=== PATIENT | male | born 1965 | race African-American/Black ===

== ENCOUNTER 2017-02-04 13:17 | Outpatient (CLI) | payer OTHER ==
--- NOTE | 2017-02-04 15:04 | RAD ---
THREE VIEWS OF THE LEFT INDEX FINGER: Comparison: 11-30-16 History: Index finger pain and swelling, cellulitis in this finger. FINDINGS: Three views of the left index finger shows diffuse soft tissue swelling. No obvious osseous erosions are seen. However, there is stable subtle osteopenia of the tuft of the distal phalanx. IMPRESSION: No obvious osseous erosions are seen to suggest osteomyelitis. POS: [facility]
== END 2017-02-04 13:18 | disposition home or self-care (01) ==
LOC: RAD 13:17
PROVIDERS: ATTEND Internal Medicine Infectious Disease
DX: L03.012 Cellulitis of left finger (principal)

== ENCOUNTER 2017-03-13 12:50 | Emergency (ER) | payer OTHER ==
[2017-03-13 16:15] LABS: #Eosinphils 0.1 thou/uL (0.0-0.7); #Lymphocytes 0.8 thou/uL (1.20-3.40); #Monocytes 0.2 thou/uL (0.11-0.59); #Neutrophils 1.7 thou/uL (1.40-6.50); %Basophils 1.2 % (0.0-1.0); %Eosinophils 1.8 % (0.0-10.0); %Lymphocytes 27.3 % (21.0-51.0); %Monocytes 8.1 % (0.0-10.0); Hematocrit 51.8 % (42.0-52.0); Red Blood Cell (RBC) Count 5.31 mill/uL (4.70-6.10); White Blood Cell (WBC) Count 2.8 thou/uL (4.8-10.8)
[2017-03-13 16:26] LABS: ALT (SGPT) 20 U/L (8-55); AST (SGOT) 13 U/L (5-34); Alkaline Phosphatase 108 U/L (40-150); Anion Gap 19 mmol/L (10-20); BUN (Urea Nitrogen) 9 mg/dL (8.9-20.6); Bilirubin, Total 0.8 mg/dL (0.2-1.2); Calc. Creatinine Clearance 0 mL/min (70-130); Calcium 9.3 mg/dL (7.8-10.44); Carbon Dioxide 20 mmol/L (22-29); Chloride 101 mmol/L (98-107); Estimated GFR-MDRD 89; Globulin 3.7 g/dL (2.4-3.5); Lipase 19 U/L (8-78); Protein, Total 7.9 g/dL (6.0-8.3)
== END 2017-03-13 17:28 | disposition home or self-care (01) ==
LOC: ERS 12:50
DX: R11.2 Nausea with vomiting, unspecified (principal); E10.9 Type 1 diabetes mellitus without complications; I10 Essential (primary) hypertension; E78.00 Pure hypercholesterolemia, unspecified; F31.9 Bipolar disorder, unspecified; F20.9 Schizophrenia, unspecified; F17.210 Nicotine dependence, cigarettes, uncomplicated; Z79.899 Other long term (current) drug therapy
CPT/HCPCS: 80053; 83690; 85025; 96360; 96361

== ENCOUNTER 2017-03-16 13:46 | Outpatient (CLI) | payer OTHER ==
[2017-03-16 15:00] LABS: Hematocrit 42.2 % (42.0-52.0); Mean Platelet Volume 6.7 fL (7.4-10.4); Red Blood Cell (RBC) Count 4.29 mill/uL (4.70-6.10); White Blood Cell (WBC) Count 4.5 thou/uL (4.8-10.8)
--- NOTE | 2017-03-25 21:41 | EKG ---
Test Reason : Blood Pressure : / mmHG Vent. Rate : 093 BPM Atrial Rate : 093 BPM P-R Int : 128 ms QRS Dur : 074 ms QT Int : 344 ms P-R-T Axes : 046 004 -11 degrees QTc Int : 427 ms Normal sinus rhythm Cannot rule out Anterior infarct , age undetermined Abnormal ECG No previous ECGs available Confirmed by ALISHA GARCIA (2) on 03/25/2017 9:41:24 PM Referred By: GEORGI Confirmed By:ALISHA GARCIA
== END 2017-03-16 13:47 | disposition home or self-care (01) ==
LOC: LABBT 13:46
PROVIDERS: ATTEND Orthopaedic Surgery Hand Surgery
DX: Z01.812 Encounter for preprocedural laboratory examination (principal); M86.8X4 Other osteomyelitis, hand
CPT/HCPCS: 85027; 93005; 93010

== ENCOUNTER 2017-03-30 15:46 | Emergency (ER) | payer OTHER, SELFPAY ==
[2017-03-30] MEDS ORDERED: Ibuprofen 200 MG TAB ONE (17:29)
[2017-03-30] MEDS ORDERED: Acetaminophen 500 MG TAB ONE (17:30)
== END 2017-03-30 18:14 | disposition home or self-care (01) ==
LOC: ERS 15:46
DX: L03.319 Cellulitis of trunk, unspecified (principal); E10.9 Type 1 diabetes mellitus without complications; E78.00 Pure hypercholesterolemia, unspecified; F31.9 Bipolar disorder, unspecified; F20.9 Schizophrenia, unspecified; F17.210 Nicotine dependence, cigarettes, uncomplicated; I10 Essential (primary) hypertension; Z79.84 Long term (current) use of oral hypoglycemic drugs; Z79.899 Other long term (current) drug therapy
CPT/HCPCS: 99283

== ENCOUNTER 2017-04-07 10:15 | Emergency (ER) | payer SELFPAY ==
[2017-04-07] MEDS ORDERED: Lidocaine 1% (PF) 30 ML VIAL ONE (10:42)
== END 2017-04-07 11:27 | disposition home or self-care (01) ==
LOC: ERS 10:15
DX: L02.414 Cutaneous abscess of left upper limb (principal); E10.9 Type 1 diabetes mellitus without complications; I10 Essential (primary) hypertension; F31.9 Bipolar disorder, unspecified; F20.9 Schizophrenia, unspecified; F17.210 Nicotine dependence, cigarettes, uncomplicated; Z79.84 Long term (current) use of oral hypoglycemic drugs; Z79.899 Other long term (current) drug therapy
CPT/HCPCS: 10060; J2001

== ENCOUNTER 2017-04-09 08:58 | Emergency (ER) | payer SELFPAY ==
[2017-04-09] MEDS ORDERED: Ibuprofen 800 MG TAB ONE (10:33)
== END 2017-04-09 10:54 | disposition home or self-care (01) ==
LOC: ERS 08:58
DX: L02.212 Cutaneous abscess of back [any part, except buttock and flank] (principal); E10.9 Type 1 diabetes mellitus without complications; I10 Essential (primary) hypertension; E78.00 Pure hypercholesterolemia, unspecified; G89.29 Other chronic pain; M54.9 Dorsalgia, unspecified; F41.9 Anxiety disorder, unspecified; F17.210 Nicotine dependence, cigarettes, uncomplicated; F31.9 Bipolar disorder, unspecified; F20.9 Schizophrenia, unspecified; Z71.6 Tobacco abuse counseling; Z79.899 Other long term (current) drug therapy
CPT/HCPCS: 87070; 87077; 87186; 87205; 99406

== ENCOUNTER 2017-04-12 15:51 | Emergency (ER) | payer SELFPAY | END 2017-04-12 19:03 | disposition home or self-care (01) | LOC: ERS 15:51 | DX: Z48.817 Encounter for surgical aftercare following surgery on the skin and subcutaneous tissue (principal); E10.9 Type 1 diabetes mellitus without complications; I10 Essential (primary) hypertension; F31.9 Bipolar disorder, unspecified; F20.9 Schizophrenia, unspecified; F17.210 Nicotine dependence, cigarettes, uncomplicated | CPT/HCPCS: 99282 ==

== ENCOUNTER 2022-11-06 09:23 | Inpatient (IN) | payer BC, OTHER ==
[2022-11-06 10:36] LABS: #Monocytes 0.9 thou/uL (0.11-0.59); #Neutrophils 14.5 thou/uL (1.40-6.50); %Basophils 0.3 % (0.0-1.0); %Lymphocytes 2.6 % (21.0-51.0); %Monocytes 5.6 % (0.0-10.0); %Neutrophils 91.1 % (42.0-75.0); Hemoglobin 15.4 g/dL (14.0-18.0); Mean Corpuscular HGB CONC 34.5 g/dL (32.0-36.0); Mean Corpuscular Hemoglobin 32.7 pg (27.0-31.0); Mean Corpuscular Volume 94.9 fl (78.0-98.0); Mean Platelet Volume 9.6 fL (7.4-10.4); Platelet Count 239 10x3/uL (130-400); RBC Distribution Width 12.2 % (11.5-14.5); Red Blood Cell (RBC) Count 4.71 mill/uL (4.70-6.10)
[2022-11-06 11:17] LABS: Albumin 4.1 g/dL (3.5-5.0)
[2022-11-06 11:18] LABS: Chloride 98 mmol/L (98-107); Potassium 4.9 mmol/L (3.5-5.1); Sodium 136 mmol/L (136-145)
[2022-11-06 11:19] LABS: Calcium 9.9 mg/dL (7.8-10.44); Glucose 254 mg/dL (70-105)
[2022-11-06 11:20] LABS: Globulin 4.8 g/dL (2.4-3.5); Protein, Total 8.9 g/dL (6.0-8.3)
[2022-11-06 11:21] LABS: Bilirubin, Total 1.7 mg/dL (0.2-1.2); Carbon Dioxide 18 mmol/L (22-29)
[2022-11-06 11:22] LABS: Alkaline Phosphatase 97 U/L (40-110)
[2022-11-06 11:23] LABS: BUN (Urea Nitrogen) 10 mg/dL (8.4-25.7); Calc. Creatinine Clearance 0 mL/min (70-130); Estimated GFR 91
[2022-11-06 11:24] LABS: AST (SGOT) 40 U/L (5-34)
[2022-11-06 11:25] LABS: ALT (SGPT) 13 U/L (8-55); Lipase 12 U/L (8-78)
[2022-11-06 11:44] LABS: Anion Gap 25 mmol/L (10-20)
[2022-11-06 12:25] LABS: Bacteria/HPF 3+ HPF (None Seen); Bilirubin Negative (Negative); Blood, Urine Negative (Negative); CAUTI Indications for Culture Fever or rigors; Clarity Clear (Clear); Glucose, Urine (Dipstick) Greater than 1000 mg/dL (Negative); Ketone, Urine 60 mg/dL (Negative); Leukocyte 75 Leu/uL (Negative); Nitrite Negative (Negative); Protein, Urine (Dipstick) 30 mg/dL (Neg-Trace); RBC/HPF 0-3 HPF (0-3); Squamous Epithelial None Seen HPF (0-3); Urobilinogen Normal mg/dL (Less than 2); pH, Urine 5.5 (5.0-9.0)
[2022-11-06 12:27] LABS: Specific Gravity, Urine Greater than 1.060 (1.002-1.036)
[2022-11-06 12:28] LABS: Urine Culture Reflex Yes Yes
[2022-11-06] MEDS ORDERED: cefTRIAXone (ROCEPHIN) 2 GM VIAL ONE (13:12)
[2022-11-06] MEDS ORDERED: Iopamidol-370 76% 500 ML MDV (1 ML CHARGE) ONE (13:20)
[2022-11-06] MEDS ORDERED: Senokot S 8.6-50 MG TAB PO PRN (14:36)
[2022-11-06] MEDS ORDERED: Acetaminophen 650 MG Suppository PR PRN (14:36)
[2022-11-06] MEDS ORDERED: Dextrose 5% in Water 1,000 ML IV PRN (14:36)
[2022-11-06] MEDS ORDERED: Acetaminophen 325 MG TAB PO PRN (14:36)
[2022-11-06] MEDS ORDERED: Glucagon 1 MG/ML KIT IM PRN (14:36)
[2022-11-06] MEDS ORDERED: Dextrose 50% Abboject 50 ML SYRINGE SLOW IVP PRN (14:36)
[2022-11-06] MEDS ORDERED: Ondansetron ODT 4 MG TAB PO PRN (14:36)
[2022-11-06] MEDS ORDERED: Ondansetron PF 4 MG/2 ML Vial IVP PRN (14:36)
[2022-11-06] MEDS ORDERED: Guaifenesin DM 100-10/5 ML UDCUP PO PRN (14:36)
[2022-11-06] MEDS ORDERED: HumaLOG 300 UNITS/3 ML VIAL SC PRN ×2 (14:36)
[2022-11-06 15:37] LABS: Troponin I Less than 0.010 ng/mL (< 0.028)
[2022-11-06 17:10] VITALS: BMI 32.5
[2022-11-06 17:15] LABS: Troponin I Less than 0.010 ng/mL (< 0.028)
[2022-11-06] MEDS ORDERED: traMADol HCl 50 MG TAB PO PRN ×2 (18:21)
[2022-11-06] MEDS: Famotidine 20 MG TAB PO SCH (22:17)
[2022-11-07 02:26] LABS: Chlam.trachomatis by PCR,Urine Not Detected (NotDetected); GC N.gonorrhoeae PCR,UrineVOID Not Detected (NotDetected)
[2022-11-07 06:00] LABS: #Monocytes 0.9 thou/uL (0.11-0.59); #Neutrophils 8.8 thou/uL (1.40-6.50); %Basophils 0.3 % (0.0-1.0); %Eosinophils 0.2 % (0.0-10.0); %Lymphocytes 7.7 % (21.0-51.0); %Monocytes 8.3 % (0.0-10.0); Hemoglobin 13.8 g/dL (14.0-18.0); Mean Corpuscular HGB CONC 33.8 g/dL (32.0-36.0); Mean Corpuscular Hemoglobin 32.1 pg (27.0-31.0); Mean Corpuscular Volume 94.9 fl (78.0-98.0); Mean Platelet Volume 9.3 fL (7.4-10.4); Platelet Count 232 10x3/uL (130-400); RBC Distribution Width 12.3 % (11.5-14.5); White Blood Cell (WBC) Count 10.6 10x3/uL (4.8-10.8)
[2022-11-07 06:31] LABS: Anion Gap 15 mmol/L (10-20); BUN (Urea Nitrogen) 9 mg/dL (8.4-25.7); Calc. Creatinine Clearance 138 mL/min (70-130); Calcium 9.4 mg/dL (7.8-10.44); Carbon Dioxide 23 mmol/L (22-29); Chloride 99 mmol/L (98-107); Estimated GFR 105; Glucose 245 mg/dL (70-105); Potassium 3.3 mmol/L (3.5-5.1); Sodium 134 mmol/L (136-145)
[2022-11-07] MEDS ORDERED: Electrolyte Replacement Protocol 1 EACH FS SCH (08:15)
[2022-11-07] MEDS ORDERED: Potassium Chloride 20 MEQ TAB PO SCH (08:30)
[2022-11-07 08:41] LABS: ALT (SGPT) 9 U/L (8-55); AST (SGOT) 8 U/L (5-34); Albumin 3.6 g/dL (3.5-5.0); Alkaline Phosphatase 81 U/L (40-110); Bilirubin, Direct 0.3 mg/dL (0.1-0.3); Bilirubin, Total 0.8 mg/dL (0.2-1.2); Magnesium 1.8 mg/dL (1.6-2.6); Phosphorus 2.2 mg/dL (2.3-4.7); Protein, Total 7.2 g/dL (6.0-8.3)
[2022-11-07] MEDS: NS 0.9% w/ 20 MEQ KCL 1,000 ML/1,000 ML BAG IV SCH ×2 (09:39→16:54)
[2022-11-07] MEDS: Famotidine 20 MG TAB PO SCH ×2 (09:40→20:37)
[2022-11-07] MEDS ORDERED: Magnesium 2 GM/50 ML(in water) 2 GM in Premix Bag 1 BAG IVPB SCH (10:45)
[2022-11-07] MEDS ORDERED: Iopamidol-370 76% 500 ML MDV (1 ML CHARGE) ONE (12:15)
[2022-11-07] MEDS ORDERED: cefTRIAXone\\ROCEPHIN 2 GM in Sodium Chloride 0.9% 100 ML IVPB SCH (13:00)
[2022-11-08] MEDS: NS 0.9% w/ 20 MEQ KCL 1,000 ML/1,000 ML BAG IV SCH (01:52)
[2022-11-08 04:47] LABS: %Lymphocytes 9.8 % (21.0-51.0); %Monocytes 8.7 % (0.0-10.0); %Neutrophils 79.7 % (42.0-75.0); Hemoglobin 12.6 g/dL (14.0-18.0); Mean Corpuscular HGB CONC 33.4 g/dL (32.0-36.0); Mean Corpuscular Hemoglobin 32.7 pg (27.0-31.0); Mean Platelet Volume 9.4 fL (7.4-10.4); Platelet Count 218 10x3/uL (130-400); RBC Distribution Width 12.3 % (11.5-14.5); Red Blood Cell (RBC) Count 3.85 mill/uL (4.70-6.10); White Blood Cell (WBC) Count 8.2 10x3/uL (4.8-10.8)
[2022-11-08 04:48] LABS: #Monocytes 0.7 thou/uL (0.11-0.59); #Neutrophils 6.5 thou/uL (1.40-6.50); %Basophils 0.5 % (0.0-1.0); %Eosinophils 0.4 % (0.0-10.0)
[2022-11-08 04:51] LABS: Mean Corpuscular Volume 97.9 fl (78.0-98.0)
[2022-11-08 05:10] LABS: Hemoglobin A1c 7.8 % (4.0-6.0)
[2022-11-08 05:27] LABS: Chloride 107 mmol/L (98-107); Sodium 135 mmol/L (136-145)
[2022-11-08 05:28] LABS: Calcium 8.5 mg/dL (7.8-10.44)
[2022-11-08 05:29] LABS: Globulin 3.6 g/dL (2.4-3.5); Glucose 235 mg/dL (70-105); Protein, Total 6.6 g/dL (6.0-8.3)
[2022-11-08 05:30] LABS: Anion Gap 18 mmol/L (10-20); Carbon Dioxide 14 mmol/L (22-29)
[2022-11-08 05:31] LABS: Bilirubin, Total 0.5 mg/dL (0.2-1.2)
[2022-11-08 05:32] LABS: Alkaline Phosphatase 808 U/L (40-110); CRP (Inflammatory) 10.65 mg/dL (= or < 0.5); Calc. Creatinine Clearance 142 mL/min (70-130); Estimated GFR 106
[2022-11-08 05:33] LABS: BUN (Urea Nitrogen) 6 mg/dL (8.4-25.7)
[2022-11-08 05:34] LABS: AST (SGOT) 18 U/L (5-34)
[2022-11-08 05:35] LABS: ALT (SGPT) 9 U/L (8-55)
[2022-11-08] MEDS ORDERED: glipiZIDE 10 MG TAB PO SCH (07:30)
[2022-11-08 08:31] VITALS: BP 144/61; TEMP 97.5
[2022-11-08] MEDS ORDERED: PHOS-NAK 1 PKT PACK PO SCH (09:00)
[2022-11-08] MEDS: Famotidine 20 MG TAB PO SCH (09:05)
[2022-11-08] MEDS ORDERED: Saccharomyces boulardii 250 MG CAP PO SCH (14:00)
== END 2022-11-08 10:16 | disposition home or self-care (01) | DRG 871 ==
LOC: ERS 09:23 → ERHOLD 13:47 → 2SW 16:52
PROVIDERS: ADMIT Emergency Medicine; ATTEND Internal Medicine
DX: A41.9 Sepsis, unspecified organism (principal); I26.99 Other pulmonary embolism without acute cor pulmonale; N39.0 Urinary tract infection, site not specified; E87.20 Acidosis, unspecified; E11.9 Type 2 diabetes mellitus without complications; N49.0 Inflammatory disorders of seminal vesicle; I10 Essential (primary) hypertension; E78.00 Pure hypercholesterolemia, unspecified; F17.210 Nicotine dependence, cigarettes, uncomplicated; F41.9 Anxiety disorder, unspecified; F31.9 Bipolar disorder, unspecified; F20.9 Schizophrenia, unspecified; E87.6 Hypokalemia; E83.39 Other disorders of phosphorus metabolism; E83.42 Hypomagnesemia; Z96.652 Presence of left artificial knee joint; E78.5 Hyperlipidemia, unspecified; Z79.84 Long term (current) use of oral hypoglycemic drugs; Z98.890 Other specified postprocedural states
CPT/HCPCS: 36415; 36416; 51701; 71275; 74177; 80048; 80053; 81001; 83036; 83690; 83735; 84100; 84484; 85025; 86140; 87086; 87491; 87591; 93005; 93306; 96365; 96372; J0696; J1650; J1815; J3475; J3480; J3490; Q9967

== ENCOUNTER 2022-11-20 12:29 | Inpatient (IN) | payer BC, OTHER ==
[~2022-11-20 12:29] MED LIST: Iopamidol-370 76% 500 ML MDV (1 ML CHARGE) ONE
[2022-11-20 15:26] LABS: #Monocytes 0.5 thou/uL (0.11-0.59); #Neutrophils 6.2 thou/uL (1.40-6.50); %Basophils 0.5 % (0.0-1.0); %Eosinophils 0.3 % (0.0-10.0); %Lymphocytes 15.8 % (21.0-51.0); %Monocytes 6.1 % (0.0-10.0); Hemoglobin 14.5 g/dL (14.0-18.0); Mean Corpuscular HGB CONC 33.5 g/dL (32.0-36.0); Mean Corpuscular Hemoglobin 32.4 pg (27.0-31.0); Mean Corpuscular Volume 96.9 fl (78.0-98.0); Mean Platelet Volume 8.7 fL (7.4-10.4); Platelet Count 353 10x3/uL (130-400); RBC Distribution Width 12.7 % (11.5-14.5); Red Blood Cell (RBC) Count 4.47 mill/uL (4.70-6.10)
[2022-11-20 15:51] LABS: ALT (SGPT) 9 U/L (8-55); AST (SGOT) 9 U/L (5-34); Albumin 4.2 g/dL (3.5-5.0); Alkaline Phosphatase 80 U/L (40-110); Anion Gap 15 mmol/L (10-20); BUN (Urea Nitrogen) 5 mg/dL (8.4-25.7); Bilirubin, Total 0.6 mg/dL (0.2-1.2); Calc. Creatinine Clearance 0 mL/min (70-130); Calcium 9.5 mg/dL (7.8-10.44); Carbon Dioxide 25 mmol/L (22-29); Chloride 104 mmol/L (98-107); Estimated GFR 105; Globulin 3.5 g/dL (2.4-3.5); Glucose 192 mg/dL (70-105); Potassium 4.2 mmol/L (3.5-5.1); Protein, Total 7.7 g/dL (6.0-8.3); Sodium 140 mmol/L (136-145)
[2022-11-20 17:12] LABS: Bacteria/HPF None Seen HPF (None Seen); Bilirubin Negative (Negative); Blood, Urine Negative (Negative); CAUTI Indications for Culture Dysuria,urgency,freq; Clarity Clear (Clear); Glucose, Urine (Dipstick) 150 mg/dL (Negative); Ketone, Urine Negative (Negative); Leukocyte Negative Leu/uL (Negative); Nitrite Negative (Negative); Protein, Urine (Dipstick) 30 mg/dL (Neg-Trace); RBC/HPF 0-3 HPF (0-3); Squamous Epithelial 0-3 HPF (0-3); Urobilinogen Normal mg/dL (Less than 2); WBC/HPF 0-3 HPF (0-3); pH, Urine 5.5 (5.0-9.0)
[2022-11-20 17:20] LABS: Urine Culture Reflex No No
[2022-11-20] MEDS ORDERED: Ketorolac Tromethamine 30 MG/ML VIAL ONE (17:50)
[2022-11-20] MEDS ORDERED: Piperacillin/Tazobactam 3.375 GM VIAL ONE (18:35)
[2022-11-20] MEDS ORDERED: Ondansetron ODT 4 MG TAB PO PRN (21:03)
[2022-11-20] MEDS ORDERED: Senokot S 8.6-50 MG TAB PO PRN (21:03)
[2022-11-20] MEDS ORDERED: Acetaminophen 325 MG TAB PO PRN (21:03)
[2022-11-20] MEDS ORDERED: Dextrose 5% in Water 1,000 ML IV PRN (21:06)
[2022-11-20] MEDS ORDERED: Dextrose 50% Abboject 50 ML SYRINGE SLOW IVP PRN (21:06)
[2022-11-20] MEDS ORDERED: Glucagon 1 MG/ML KIT IM PRN (21:06)
[2022-11-20] MEDS ORDERED: D5 1/2 NS w/20 mEq KCL 1,000 ML IV SCH (23:55)
[2022-11-21] MEDS: Piperacillin/Tazobactam 3.375 GM in Sodium Chloride 0.9% 100 ML IVPB SCH ×4 (00:04→20:32)
[2022-11-21] MEDS: HYDROcodone/Acetaminophen 5/325 mg Tablet PO PRN ×4 (00:07→20:31)
[2022-11-21 01:53] VITALS: BMI 33.2
[2022-11-21 06:58] LABS: #Eosinphils 0.1 thou/uL (0.0-0.7); #Monocytes 0.4 thou/uL (0.11-0.59); #Neutrophils 4.6 thou/uL (1.40-6.50); %Basophils 0.5 % (0.0-1.0); %Eosinophils 1.1 % (0.0-10.0); %Lymphocytes 16.4 % (21.0-51.0); %Neutrophils 74.7 % (42.0-75.0); Hemoglobin 12.9 g/dL (14.0-18.0); Mean Corpuscular HGB CONC 33.8 g/dL (32.0-36.0); Mean Corpuscular Hemoglobin 32.6 pg (27.0-31.0); Mean Corpuscular Volume 96.5 fl (78.0-98.0); Mean Platelet Volume 8.7 fL (7.4-10.4); Platelet Count 296 10x3/uL (130-400); RBC Distribution Width 12.7 % (11.5-14.5); Red Blood Cell (RBC) Count 3.96 mill/uL (4.70-6.10); White Blood Cell (WBC) Count 6.1 10x3/uL (4.8-10.8)
[2022-11-21 07:26] LABS: Anion Gap 11 mmol/L (10-20); BUN (Urea Nitrogen) 7 mg/dL (8.4-25.7); Calc. Creatinine Clearance 151 mL/min (70-130); Calcium 9.2 mg/dL (7.8-10.44); Carbon Dioxide 28 mmol/L (22-29); Chloride 103 mmol/L (98-107); Estimated GFR 105; Glucose 242 mg/dL (70-105); Potassium 3.5 mmol/L (3.5-5.1); Sodium 138 mmol/L (136-145)
[2022-11-21] MEDS: Famotidine 20 MG TAB PO SCH ×2 (08:01→20:32)
[2022-11-21] MEDS: HumaLOG 300 UNITS/3 ML VIAL SC PRN ×2 (13:27→20:36)
[2022-11-22] MEDS: HYDROcodone/Acetaminophen 5/325 mg Tablet PO PRN ×2 (06:25→21:29)
[2022-11-22] MEDS: Piperacillin/Tazobactam 3.375 GM in Sodium Chloride 0.9% 100 ML IVPB SCH ×3 (06:25→21:30)
[2022-11-22] MEDS: HumaLOG 300 UNITS/3 ML VIAL SC PRN ×3 (06:27→18:16)
[2022-11-22 06:52] LABS: #Eosinphils 0.1 thou/uL (0.0-0.7); #Monocytes 0.4 thou/uL (0.11-0.59); #Neutrophils 5.8 thou/uL (1.40-6.50); %Basophils 0.4 % (0.0-1.0); %Eosinophils 0.8 % (0.0-10.0); %Lymphocytes 11.6 % (21.0-51.0); %Monocytes 5.6 % (0.0-10.0); %Neutrophils 81.2 % (42.0-75.0); Hemoglobin 13.2 g/dL (14.0-18.0); Mean Corpuscular HGB CONC 33.2 g/dL (32.0-36.0); Mean Corpuscular Hemoglobin 31.8 pg (27.0-31.0); Mean Corpuscular Volume 95.9 fl (78.0-98.0); Mean Platelet Volume 8.8 fL (7.4-10.4); Platelet Count 279 10x3/uL (130-400); RBC Distribution Width 12.4 % (11.5-14.5); Red Blood Cell (RBC) Count 4.15 mill/uL (4.70-6.10); White Blood Cell (WBC) Count 7.2 10x3/uL (4.8-10.8)
[2022-11-22 07:17] LABS: Anion Gap 15 mmol/L (10-20); BUN (Urea Nitrogen) 7 mg/dL (8.4-25.7); CRP (Inflammatory) 3.87 mg/dL (= or < 0.5); Calc. Creatinine Clearance 149 mL/min (70-130); Calcium 9.1 mg/dL (7.8-10.44); Carbon Dioxide 23 mmol/L (22-29); Chloride 103 mmol/L (98-107); Estimated GFR 104; Glucose 244 mg/dL (70-105); Potassium 3.9 mmol/L (3.5-5.1); Sodium 137 mmol/L (136-145)
[2022-11-22] MEDS: Famotidine 20 MG TAB PO SCH ×2 (08:50→21:28)
[2022-11-22] MEDS: Ketorolac Tromethamine 30 MG/ML VIAL IVP PRN ×2 (08:50→18:22)
[2022-11-22] MEDS: glipiZIDE 10 MG TAB PO SCH (17:58)
[2022-11-22] MEDS: metFORMIN 500 MG TAB PO SCH (17:59)
[2022-11-23] MEDS: Ketorolac Tromethamine 30 MG/ML VIAL IVP PRN (01:50)
[2022-11-23] MEDS: Piperacillin/Tazobactam 3.375 GM in Sodium Chloride 0.9% 100 ML IVPB SCH ×3 (05:20→21:06)
[2022-11-23 08:17] LABS: #Eosinphils 0.1 thou/uL (0.0-0.7); #Monocytes 0.4 thou/uL (0.11-0.59); #Neutrophils 4.5 thou/uL (1.40-6.50); %Basophils 0.5 % (0.0-1.0); %Eosinophils 1.5 % (0.0-10.0); %Lymphocytes 15.8 % (21.0-51.0); %Neutrophils 75.9 % (42.0-75.0); Hemoglobin 12.5 g/dL (14.0-18.0); Mean Corpuscular HGB CONC 34.1 g/dL (32.0-36.0); Mean Corpuscular Hemoglobin 32.7 pg (27.0-31.0); Mean Corpuscular Volume 96.1 fl (78.0-98.0); Mean Platelet Volume 9.1 fL (7.4-10.4); Platelet Count 308 10x3/uL (130-400); RBC Distribution Width 12.3 % (11.5-14.5); Red Blood Cell (RBC) Count 3.82 mill/uL (4.70-6.10); White Blood Cell (WBC) Count 5.9 10x3/uL (4.8-10.8)
[2022-11-23 08:49] LABS: Anion Gap 15 mmol/L (10-20); BUN (Urea Nitrogen) 8 mg/dL (8.4-25.7); Calc. Creatinine Clearance 163 mL/min (70-130); Carbon Dioxide 23 mmol/L (22-29); Chloride 105 mmol/L (98-107); Estimated GFR 107; Glucose 162 mg/dL (70-105); Potassium 3.5 mmol/L (3.5-5.1); Sodium 139 mmol/L (136-145)
[2022-11-23] MEDS: Lisinopril 20 MG TAB PO SCH (09:07)
[2022-11-23] MEDS: metFORMIN 500 MG TAB PO SCH ×2 (09:07→16:45)
[2022-11-23] MEDS: glipiZIDE 10 MG TAB PO SCH ×2 (09:07→16:45)
[2022-11-23] MEDS: Famotidine 20 MG TAB PO SCH ×2 (09:08→20:05)
[2022-11-23] MEDS: LevoFLOXacin 750 mg/D5W 750 MG in Premix Bag 1 BAG IVPB SCH (13:18)
[2022-11-23] MEDS: HYDROcodone/Acetaminophen 5/325 mg Tablet PO PRN ×2 (13:27→20:06)
[2022-11-24] MEDS: HYDROcodone/Acetaminophen 5/325 mg Tablet PO PRN ×3 (00:24→21:10)
[2022-11-24] MEDS: Piperacillin/Tazobactam 3.375 GM in Sodium Chloride 0.9% 100 ML IVPB SCH ×3 (05:24→21:04)
[2022-11-24 07:27] LABS: #Eosinphils 0.1 thou/uL (0.0-0.7); #Monocytes 0.6 thou/uL (0.11-0.59); #Neutrophils 4.8 thou/uL (1.40-6.50); %Basophils 0.2 % (0.0-1.0); %Lymphocytes 12.4 % (21.0-51.0); %Neutrophils 77.2 % (42.0-75.0); Mean Corpuscular HGB CONC 34.4 g/dL (32.0-36.0); Mean Corpuscular Hemoglobin 32.8 pg (27.0-31.0); Mean Corpuscular Volume 95.5 fl (78.0-98.0); Mean Platelet Volume 8.9 fL (7.4-10.4); Platelet Count 274 10x3/uL (130-400); RBC Distribution Width 12.1 % (11.5-14.5); Red Blood Cell (RBC) Count 3.96 mill/uL (4.70-6.10); White Blood Cell (WBC) Count 6.1 10x3/uL (4.8-10.8)
[2022-11-24 07:51] LABS: INR-International Normal Ratio 1.1; Prothrombin Time 14.7 sec (12.0-14.7)
[2022-11-24 07:55] LABS: Anion Gap 13 mmol/L (10-20); BUN (Urea Nitrogen) 6 mg/dL (8.4-25.7); CRP (Inflammatory) 3.36 mg/dL (= or < 0.5); Calc. Creatinine Clearance 170 mL/min (70-130); Calcium 9.1 mg/dL (7.8-10.44); Carbon Dioxide 24 mmol/L (22-29); Chloride 106 mmol/L (98-107); Estimated GFR 108; Glucose 104 mg/dL (70-105); Potassium 3.5 mmol/L (3.5-5.1); Sodium 139 mmol/L (136-145)
[2022-11-24] MEDS: Ketorolac Tromethamine 30 MG/ML VIAL IVP PRN (08:34)
[2022-11-24] MEDS: Famotidine 20 MG TAB PO SCH ×2 (08:35→20:16)
[2022-11-24] MEDS: Lisinopril 20 MG TAB PO SCH (08:35)
[2022-11-24] MEDS: metFORMIN 500 MG TAB PO SCH ×2 (08:35→16:00)
[2022-11-24] MEDS: glipiZIDE 10 MG TAB PO SCH ×2 (08:35→15:45)
[2022-11-24] MEDS: LevoFLOXacin 750 mg/D5W 750 MG in Premix Bag 1 BAG IVPB SCH (12:28)
[2022-11-25] MEDS: Piperacillin/Tazobactam 3.375 GM in Sodium Chloride 0.9% 100 ML IVPB SCH ×4 (05:08→21:11)
[2022-11-25] MEDS: HYDROcodone/Acetaminophen 5/325 mg Tablet PO PRN ×3 (05:09→20:56)
[2022-11-25] MEDS: glipiZIDE 10 MG TAB PO SCH ×3 (08:04→17:25)
[2022-11-25] MEDS: metFORMIN 500 MG TAB PO SCH ×3 (08:04→17:25)
[2022-11-25] MEDS: Famotidine 20 MG TAB PO SCH ×2 (08:05→20:56)
[2022-11-25] MEDS: Lisinopril 20 MG TAB PO SCH (08:05)
[2022-11-25] MEDS: LevoFLOXacin 750 mg/D5W 750 MG in Premix Bag 1 BAG IVPB SCH (12:16)
[2022-11-25] MEDS: Ketorolac Tromethamine 30 MG/ML VIAL IVP PRN (14:04)
[2022-11-25] MEDS ORDERED: Bupivacaine 0.25% HCL 30 ML VIAL ONE (14:41)
[2022-11-25] MEDS ORDERED: Lidocaine 1% PF 5 ML VIAL ONE ×2 (14:41→15:42)
[2022-11-25] MEDS ORDERED: Bacitracin Zinc Ointment 30 gm TUBE ONE (14:41)
[2022-11-25] MEDS ORDERED: fentaNYL 50 mcg/mL 1 mL Vial ONE (14:59)
[2022-11-25] MEDS ORDERED: Dexamethasone 20 MG/5 ML VIAL ONE (15:42)
[2022-11-25] MEDS ORDERED: PROPOFOL 200 MG/20 ML VIAL ONE (15:42)
[2022-11-25] MEDS ORDERED: Rocuronium Bromide 10 MG/ML (10ML VIAL) ONE (15:42)
[2022-11-25] MEDS ORDERED: Ondansetron PF 4 MG/2 ML Vial ONE (15:42)
[2022-11-25] MEDS: HumaLOG 300 UNITS/3 ML VIAL SC PRN (22:49)
[2022-11-26] MEDS: HYDROcodone/Acetaminophen 5/325 mg Tablet PO PRN ×5 (00:43→21:54)
[2022-11-26] MEDS: Piperacillin/Tazobactam 3.375 GM in Sodium Chloride 0.9% 100 ML IVPB SCH ×3 (05:44→20:21)
[2022-11-26] MEDS: HumaLOG 300 UNITS/3 ML VIAL SC PRN (05:46)
[2022-11-26] MEDS: Famotidine 20 MG TAB PO SCH ×2 (08:34→20:21)
[2022-11-26] MEDS: glipiZIDE 10 MG TAB PO SCH ×2 (08:34→18:08)
[2022-11-26] MEDS: Lisinopril 20 MG TAB PO SCH (08:34)
[2022-11-26] MEDS: metFORMIN 500 MG TAB PO SCH ×2 (08:35→18:08)
[2022-11-26] MEDS: LevoFLOXacin 750 mg/D5W 750 MG in Premix Bag 1 BAG IVPB SCH (13:11)
[2022-11-27 05:24] LABS: #Eosinphils 0.1 thou/uL (0.0-0.7); #Monocytes 0.5 thou/uL (0.11-0.59); #Neutrophils 3.5 thou/uL (1.40-6.50); %Basophils 0.7 % (0.0-1.0); %Eosinophils 1.3 % (0.0-10.0); %Monocytes 8.1 % (0.0-10.0); %Neutrophils 58.4 % (42.0-75.0); Hemoglobin 12.6 g/dL (14.0-18.0); Mean Corpuscular HGB CONC 32.7 g/dL (32.0-36.0); Mean Corpuscular Hemoglobin 32.6 pg (27.0-31.0); Mean Corpuscular Volume 99.5 fl (78.0-98.0); Mean Platelet Volume 8.8 fL (7.4-10.4); Platelet Count 285 10x3/uL (130-400); RBC Distribution Width 12.3 % (11.5-14.5); Red Blood Cell (RBC) Count 3.87 mill/uL (4.70-6.10)
[2022-11-27] MEDS: Piperacillin/Tazobactam 3.375 GM in Sodium Chloride 0.9% 100 ML IVPB SCH ×3 (05:46→21:19)
[2022-11-27 05:48] LABS: Anion Gap 13 mmol/L (10-20); BUN (Urea Nitrogen) 10 mg/dL (8.4-25.7); CRP (Inflammatory) 4.23 mg/dL (= or < 0.5); Calc. Creatinine Clearance 151 mL/min (70-130); Calcium 9.1 mg/dL (7.8-10.44); Carbon Dioxide 23 mmol/L (22-29); Chloride 106 mmol/L (98-107); Estimated GFR 105; Glucose 97 mg/dL (70-105); Magnesium 1.6 mg/dL (1.6-2.6); Potassium 3.7 mmol/L (3.5-5.1); Sodium 138 mmol/L (136-145)
[2022-11-27] MEDS: HYDROcodone/Acetaminophen 5/325 mg Tablet PO PRN ×3 (08:30→21:11)
[2022-11-27] MEDS: glipiZIDE 10 MG TAB PO SCH ×2 (08:30→16:56)
[2022-11-27] MEDS: Famotidine 20 MG TAB PO SCH ×2 (08:30→21:12)
[2022-11-27] MEDS: metFORMIN 500 MG TAB PO SCH ×2 (08:31→16:59)
[2022-11-27] MEDS: Lisinopril 20 MG TAB PO SCH (08:31)
[2022-11-27] MEDS: HumaLOG 300 UNITS/3 ML VIAL SC PRN (12:15)
[2022-11-27] MEDS: LevoFLOXacin 750 mg/D5W 750 MG in Premix Bag 1 BAG IVPB SCH (12:51)
[2022-11-27] MEDS: Apixaban 5 MG TAB PO SCH (21:12)
[2022-11-28] MEDS: HYDROcodone/Acetaminophen 5/325 mg Tablet PO PRN (05:11)
[2022-11-28] MEDS: Piperacillin/Tazobactam 3.375 GM in Sodium Chloride 0.9% 100 ML IVPB SCH ×2 (05:11→12:51)
[2022-11-28 07:32] VITALS: BP 154/91; TEMP 98.1
[2022-11-28] MEDS: Famotidine 20 MG TAB PO SCH (08:29)
[2022-11-28] MEDS: glipiZIDE 10 MG TAB PO SCH (08:29)
[2022-11-28] MEDS: Lisinopril 20 MG TAB PO SCH (08:29)
[2022-11-28] MEDS: metFORMIN 500 MG TAB PO SCH (08:29)
[2022-11-28] MEDS: Apixaban 5 MG TAB PO SCH (08:29)
[2022-11-28] MEDS: LevoFLOXacin 750 mg/D5W 750 MG in Premix Bag 1 BAG IVPB SCH (12:43)
== END 2022-11-28 16:19 | disposition home or self-care (01) | DRG 711 ==
LOC: ERS 12:29 → T4-B 19:18
PROVIDERS: ADMIT Student in an Organized Health Care Education/Training Program; ATTEND Family Medicine
PROC: 0VB90ZZ Excision of Right Testis, Open Approach (ICD-10-PCS; principal; 2022-11-25)
PROC: 0TJB8ZZ Inspection of Bladder, Via Natural or Artificial Opening Endoscopic (ICD-10-PCS; 2022-11-25)
PROC: 0V9 Male Reproductive System, Drainage (ICD-10-PCS; 2022-11-26)
DX: N45.3 Epididymo-orchitis (principal); I50.32 Chronic diastolic (congestive) heart failure; N34.0 Urethral abscess; I11.0 Hypertensive heart disease with heart failure; F31.9 Bipolar disorder, unspecified; F20.9 Schizophrenia, unspecified; F17.210 Nicotine dependence, cigarettes, uncomplicated; Z96.652 Presence of left artificial knee joint; E78.00 Pure hypercholesterolemia, unspecified; F41.9 Anxiety disorder, unspecified; N43.3 Hydrocele, unspecified; B96.20 Unspecified Escherichia coli [E. coli] as the cause of diseases classified elsewhere; E11.65 Type 2 diabetes mellitus with hyperglycemia; Z79.84 Long term (current) use of oral hypoglycemic drugs; Z79.899 Other long term (current) drug therapy; Q54.9 Hypospadias, unspecified; Z79.01 Long term (current) use of anticoagulants; Z86.711 Personal history of pulmonary embolism
CPT/HCPCS: 36415; 36416; 74177; 76870; 80048; 80053; 81001; 83036; 83735; 85025; 85610; 86140; 87040; 87070; 87077; 87186; 87205; 88305; 93005; 93010; 93976; 96365; 96375; J1100; J1650; J1815; J1885; J1956; J2405; J2543; J2704; J3010; J3480; J3490; Q9967; S0020

== ENCOUNTER 2023-02-10 02:34 | Emergency (ER) | payer BC, SELFPAY ==
[2023-02-10 05:42] LABS: #Monocytes 0.3 thou/uL (0.11-0.59); #Neutrophils 5.2 thou/uL (1.40-6.50); %Basophils 0.5 % (0.0-1.0); %Eosinophils 0.3 % (0.0-10.0); %Lymphocytes 14.7 % (21.0-51.0); %Monocytes 5.2 % (0.0-10.0); Hematocrit 45.6 % (42.0-52.0); Hemoglobin 15.5 g/dL (14.0-18.0); Mean Corpuscular Hemoglobin 32.6 pg (27.0-31.0); Mean Platelet Volume 8.9 fL (7.4-10.4); Platelet Count 222 10x3/uL (130-400); RBC Distribution Width 12.8 % (11.5-14.5); Red Blood Cell (RBC) Count 4.75 mill/uL (4.70-6.10); White Blood Cell (WBC) Count 6.6 10x3/uL (4.8-10.8)
[2023-02-10 06:22] LABS: Anion Gap 19 mmol/L (10-20); BUN (Urea Nitrogen) 13 mg/dL (8.4-25.7); Calc. Creatinine Clearance 0 mL/min (70-130); Carbon Dioxide 20 mmol/L (22-29); Chloride 103 mmol/L (98-107); Estimated GFR 97; Glucose 314 mg/dL (70-105); Sodium 138 mmol/L (136-145)
[2023-02-10 06:23] LABS: ALT (SGPT) 15 U/L (8-55); Alkaline Phosphatase 96 U/L (40-110); Bilirubin, Total 0.6 mg/dL (0.2-1.2); Protein, Total 8.2 g/dL (6.0-8.3)
[2023-02-10 06:24] LABS: AST (SGOT) 13 U/L (5-34); Albumin 4.6 g/dL (3.5-5.0); Globulin 3.6 g/dL (2.4-3.5)
== END 2023-02-10 06:50 | disposition home or self-care (01) ==
LOC: ERS 02:34 → EEVIPCON 02:34 → ERS 06:50
DX: E11.65 Type 2 diabetes mellitus with hyperglycemia (principal); I10 Essential (primary) hypertension; E78.00 Pure hypercholesterolemia, unspecified; F17.210 Nicotine dependence, cigarettes, uncomplicated
CPT/HCPCS: 36415; 80053; 85025; 96360